=== PATIENT | male | born 1965 | race Caucasian/White ===

== ENCOUNTER → 2020-08-19 15:31 | Outpatient (CLI) | payer OTHER, SELFPAY ==
--- NOTE | 2020-08-19 | DI.MRI.S_ITS ---
PROCEDURE: MR BRAIN (IAC) WWO CON INDICATIONS: Dizziness and giddiness TECHNIQUE: Noncontrast sagittal T1 spin echo, axial FLAIR, axial gradient echo, axial diffusion and ADC through the brain. Axial thin-slice 3D CISS, coronal TruFISP, axial T1 spin echo with fat saturation through the internal auditory canals. After the administration of contrast, thin slice axial and coronal T1 spin echo with fat saturation through the internal auditory canals, and axial T1 spin echo with fat saturation through the brain. COMPARISON: None. FINDINGS: Image quality: Excellent. Cerebellopontine angles: No cerebellopontine angle masses. Inner ear structures appear normally formed. No suspicious enhancement in the internal auditory canal or along the course of the 7th cranial nerve. CSF spaces: Ventricles are normal in size and shape. No extra-axial fluid collections. Basal cisterns are patent. Brain: No intracranial bleeds or mass effects. Snider-white matter interface is intact. No abnormal intracranial enhancement. Diffusion weighted images demonstrate no acute ischemic insults. Brainstem appears normal. Normal intravascular flow voids are present. Skull and face: Calvarial marrow signal is normal. Orbits appear normal. Sinuses: Sinuses and mastoids are clear. IMPRESSION: No significant abnormality is seen. Specifically, no masses or abnormal enhancement are seen within the cerebellopontine angle cisterns or within the internal auditory canals. Dictated by: Panchito Leary M.D. on 08/19/2020 at 15:38 Approved by: Panchito Leary M.D. on 08/19/2020 at 15:39
== END ==
PROVIDERS: Family Provider Nurse Practitioner Family; PCP Nurse Practitioner Family; Referring Provider Otolaryngology; Visit Provider Otolaryngology
DX: R42 Dizziness and giddiness (principal); H90.5 Unspecified sensorineural hearing loss
CPT/HCPCS: 70553; A9579

== ENCOUNTER 2020-10-15 14:15 | Outpatient (RCR) | payer OTHER, SELFPAY ==
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
--- NOTE | 2020-08-21 14:47 | PT.OPPOC ---
Physical, Occupational & Speech Therapy At [facility] Current Diagnoses Obstructive sleep apnea (adult) (pediatric) (08/21/20) Unspecified sensorineural hearing loss (08/21/20) Tinnitus, left ear (08/21/20) Dizziness and giddiness (08/21/20) Visit Care Team Role Provider Type RENETTA Anaya Family Provider Non-Staff Primary Care Provider Specialty: Medical Address: [address] [place] [address], [address], [place], [address] Email: Anatoly Cooley MD Attending Provider Physician Referring Provider Specialty: Ear, Nose, Throat Address: [address] [place] [address], [id number] Email: [email or web address] Plan Of Care PT-OP-T Assessment and Plan Start: 08/21/20 07:28 Freq: Status: Active Protocol: Document 08/21/20 09:00 AMB (Rec: 08/23/20 11:57 AMB [email or web address]) Physical Therapy Assessment Rehab Potential Rehabilitation Potential Good Evaluation Complexity Number of Personal Factors/Comorbidities 1-2 Number of Body Systems Impaired 3 Clinical Presentation at Evaluation Evolving Impairments Impairments Balance,Functional Activities, Vestibular Goals Three Impairment gait Short Term Goal (STG) Kartik will walk over uneven terrain without dizziness or loss of balance. STG Duration 4 weeks Assisted Goal (LTG) Kartik will walk with slow head turns (like to look for oncoming traffic in a parking lot) without veering or LTG Duration 8 weeks Two Impairment balance Short Term Goal (STG) Kartik will balance with eyes closed on foam for 10 seconds without LOB. STG Duration 4 weeks One Impairment VOR Short Term Goal (STG) Kartik will be independent with a HEP to improve his VOR. STG Duration 4 weeks Assessment Summary Assessment Kartik attends physical therapy with recent onset vestibular weakness in the context of chronic hearing loss. He displayed difficulty with eyes closed foam balance and VOR activities (blurring even with slow head turn, but was able to perform DVA with 1 line degradation although reported blurring). He will benefit from vestibular PT to help him manage his symptoms, so that he can return to his previous line of work where he will need to bend, lift, and dynamically move without fear of losing his balance. Physical Therapy Plan Frequency and Duration Frequency of Treatment 2x/Week Duration of Treatment 8 weeks Plan of Care Start Date 08/21/20 Plan of Care End Date 10/16/20 Therapeutic Interventions Therapeutic Interventions Balance Training,Home Exercise Program,Neuromuscular Re- education,Self-Care/Home Management,Therapeutic Activities,Therapeutic Exercises,Vestibular Rehabilitation Next Visit Focus/Plan Next Note Type Treatment Note Next Visit Plan Progress VOR, progress EC balance, trial walking with headturns Plan of Care Dates Plan of Care Start Date 08/21/20 Plan of Care End Date 10/16/20 Electronically Signed by: Kristie Dhaliwal, PT 08/23/20 [id number] Please Sign and Return: I have reviewed this Plan of Care and certify that the skilled therapy services above are required to meet the patient?s needs. Physician Signature Date Printed Name and Credentials Clinical Instructor Signature Printed Name and Credentials
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
== END 2020-10-16 07:46 | disposition home or self-care (01) ==
LOC: PHYS 14:15
PROVIDERS: Family Provider Nurse Practitioner Family; PCP Nurse Practitioner Family; Referring Provider Otolaryngology; Visit Provider Otolaryngology
DX: R42 Dizziness and giddiness (principal); H90.5 Unspecified sensorineural hearing loss; H93.12 Tinnitus, left ear; G47.33 Obstructive sleep apnea (adult) (pediatric)
CPT/HCPCS: 97112; 97162